=== PATIENT | female | born 1950 | race Caucasian/White ===

== ENCOUNTER → 2023-04-24 13:22 | Outpatient (REF) | payer MEDICARE, OTHER, SELFPAY | LOC: RAD 13:22 | PROVIDERS: ATTENDING PHYSICIAN Internal Medicine Rheumatology; FAMILY PHYSICIAN Internal Medicine Geriatric Medicine | DX: M81.0 Age-related osteoporosis without current pathological fracture (principal) | CPT/HCPCS: 77080 ==

== ENCOUNTER → 2023-07-22 06:44 | Outpatient (REF) | payer MEDICARE, OTHER, SELFPAY ==
[2023-07-22 08:48] LABS: ALT (SGPT) 29 U/L (0-35); AST (SGOT) 37 U/L (14-36); Albumin 3.9 g/dl (3.5-5.0); Alkaline Phosphatase 43 U/L (38-126); Blood Urea Nitrogen 22 mg/dl (7-17); Calcium 9.2 mg/dl (8.4-10.2); Carbon Dioxide 29 mmol/L (22-30); Chloride 104 mmol/L (98-107); Glucose 102 mg/dl (70-99); HDL Cholesterol 83 mg/dl; LDL Cholesterol, Calculated 42 mg/dl; Potassium 4.4 mmol/L (3.5-5.1); Sodium 137 mmol/L (135-145); Total Bilirubin 0.7 mg/dl (0.2-1.3); Total Cholesterol 133 mg/dl (50-199); Triglyceride 42 mg/dl (10-149); Very Low Density Lipoprotein 8 mg/dl (0-30); eGFR > 60.00
== END ==
LOC: RAD 06:44
PROVIDERS: ATTENDING PHYSICIAN Internal Medicine Geriatric Medicine
DX: I77.810 Thoracic aortic ectasia (principal); I65.23 Occlusion and stenosis of bilateral carotid arteries; Z00.00 Encounter for general adult medical examination without abnormal findings; E78.2 Mixed hyperlipidemia; I10 Essential (primary) hypertension; E74.39 Other disorders of intestinal carbohydrate absorption; K21.9 Gastro-esophageal reflux disease without esophagitis; E66.9 Obesity, unspecified; E55.9 Vitamin D deficiency, unspecified; M81.0 Age-related osteoporosis without current pathological fracture; G47.33 Obstructive sleep apnea (adult) (pediatric); M21.41 Flat foot [pes planus] (acquired), right foot; M79.671 Pain in right foot; M21.42 Flat foot [pes planus] (acquired), left foot; Z13.31 Encounter for screening for depression
CPT/HCPCS: 36415; 76770; 80053; 80061; 93880

== ENCOUNTER → 2023-08-20 07:43 | Outpatient (REF) | payer MEDICARE, OTHER, SELFPAY ==
[2023-08-20 10:14] LABS: ALT (SGPT) 20 U/L (0-35); AST (SGOT) 31 U/L (14-36); Albumin 4.1 g/dl (3.5-5.0); Alkaline Phosphatase 48 U/L (38-126); Direct Bilirubin 0.1 mg/dl (0.0-0.4); Total Bilirubin 0.8 mg/dl (0.2-1.3); Total Protein 6.2 g/dl (6.3-8.2)
== END ==
LOC: REG 07:43
PROVIDERS: ATTENDING PHYSICIAN Internal Medicine Geriatric Medicine
DX: R74.01 Elevation of levels of liver transaminase levels (principal)
CPT/HCPCS: 36415; 80076

== ENCOUNTER → 2023-09-27 12:01 | Outpatient (REF) | payer MEDICARE, OTHER, SELFPAY ==
[2023-09-27 14:14] LABS: Blood Urea Nitrogen 23 mg/dl (7-17); Calcium 9.6 mg/dl (8.4-10.2); Carbon Dioxide 30 mmol/L (22-30); Chloride 99 mmol/L (98-107); Glucose 87 mg/dl (70-99); Potassium 4.3 mmol/L (3.5-5.1); Sodium 134 mmol/L (135-145); eGFR > 60.00
[2023-09-27 14:32] LABS: Vitamin D, 25-OH*** 56.3 ng/mL (30-80)
== END ==
LOC: REG 12:01
PROVIDERS: ATTENDING PHYSICIAN Internal Medicine; FAMILY PHYSICIAN Internal Medicine
DX: M81.0 Age-related osteoporosis without current pathological fracture (principal)
CPT/HCPCS: 36415; 80048; 82306

== ENCOUNTER → 2023-12-16 07:56 | Outpatient (REF) | payer MEDICARE, OTHER, SELFPAY ==
[2023-12-16 10:18] LABS: ALT (SGPT) 23 U/L (0-35); AST (SGOT) 31 U/L (14-36); Albumin 4.2 g/dl (3.5-5.0); Alkaline Phosphatase 36 U/L (38-126); Direct Bilirubin 0.1 mg/dl (0.0-0.4); HDL Cholesterol 94 mg/dl; LDL Cholesterol, Calculated 52 mg/dl; Total Bilirubin 0.9 mg/dl (0.2-1.3); Total Cholesterol 153 mg/dl (50-199); Total Protein 6.2 g/dl (6.3-8.2); Triglyceride 39 mg/dl (10-149); Very Low Density Lipoprotein 7 mg/dl (0-30)
== END ==
LOC: REG 07:56
PROVIDERS: ATTENDING PHYSICIAN Internal Medicine
DX: E78.5 Hyperlipidemia, unspecified (principal)
CPT/HCPCS: 36415; 80061; 80076

== ENCOUNTER → 2024-03-10 12:52 | Outpatient (REF) | payer MEDICARE, OTHER, SELFPAY | LOC: WDC 12:52 | PROVIDERS: ATTENDING PHYSICIAN Obstetrics & Gynecology Gynecology; FAMILY PHYSICIAN Internal Medicine | DX: Z12.31 Encounter for screening mammogram for malignant neoplasm of breast (principal) | CPT/HCPCS: 77063; 77067 ==

== ENCOUNTER → 2024-03-18 07:39 | Outpatient (REF) | payer MEDICARE, OTHER, SELFPAY ==
[2024-03-18 10:16] LABS: Blood Urea Nitrogen 16 mg/dl (7-17); Calcium 9.4 mg/dl (8.4-10.2); Carbon Dioxide 28 mmol/L (22-30); Chloride 101 mmol/L (98-107); Glucose 92 mg/dl (70-99); HDL Cholesterol 82 mg/dl; LDL Cholesterol, Calculated 66 mg/dl; Potassium 4.2 mmol/L (3.5-5.1); Sodium 138 mmol/L (135-145); Total Cholesterol 157 mg/dl (50-199); Triglyceride 45 mg/dl (10-149); Very Low Density Lipoprotein 9 mg/dl (0-30); eGFR > 60.00
[2024-03-18 10:18] LABS: Vitamin D, 25-OH*** 52.8 ng/mL (30-80)
== END ==
LOC: REG 07:39
PROVIDERS: ATTENDING PHYSICIAN Internal Medicine
DX: E78.5 Hyperlipidemia, unspecified (principal); M81.0 Age-related osteoporosis without current pathological fracture
CPT/HCPCS: 36415; 80048; 80061; 82306

== ENCOUNTER → 2024-03-20 08:21 | Outpatient (REF) | payer MEDICARE, OTHER, SELFPAY | LOC: REG 08:21 | PROVIDERS: ATTENDING PHYSICIAN Nurse Practitioner Adult Health; FAMILY PHYSICIAN Internal Medicine | DX: R19.5 Other fecal abnormalities (principal) | CPT/HCPCS: 82705 ==

== ENCOUNTER → 2024-06-19 08:25 | Outpatient (REF) | payer MEDICARE, OTHER, SELFPAY ==
[2024-06-19 13:40] LABS: HDL Cholesterol 94 mg/dl; LDL Cholesterol, Calculated 122 mg/dl; Total Cholesterol 226 mg/dl (50-199); Triglyceride 51 mg/dl (10-149); Very Low Density Lipoprotein 10 mg/dl (0-30)
[2024-06-19 15:39] LABS: Hepatitis C Antibody Negative (Negative)
== END ==
LOC: REG 08:25
PROVIDERS: ATTENDING PHYSICIAN Internal Medicine
DX: E78.5 Hyperlipidemia, unspecified (principal); Z00.00 Encounter for general adult medical examination without abnormal findings; Z11.59 Encounter for screening for other viral diseases
CPT/HCPCS: 36415; 80061; 86803

== ENCOUNTER → 2024-09-03 08:29 | Outpatient (REF) | payer MEDICARE, OTHER, SELFPAY ==
[2024-09-03 10:33] LABS: ALT (SGPT) 16 U/L (0-35); AST (SGOT) 23 U/L (14-36); Albumin 4.4 g/dl (3.5-5.0); Alkaline Phosphatase 52 U/L (38-126); HDL Cholesterol 96 mg/dl; LDL Cholesterol, Calculated 90 mg/dl; Total Protein 6.7 g/dl (6.3-8.2); Very Low Density Lipoprotein 9 mg/dl (0-30)
== END ==
LOC: RCS 08:29
PROVIDERS: ATTENDING PHYSICIAN Internal Medicine; FAMILY PHYSICIAN Internal Medicine
DX: R07.9 Chest pain, unspecified (principal); E78.5 Hyperlipidemia, unspecified
CPT/HCPCS: 36415; 80061; 80076; 93017; 93350

== ENCOUNTER → 2024-12-30 13:42 | Outpatient (REF) | payer MEDICARE, OTHER, SELFPAY ==
[2024-12-30 15:08] LABS: Blood Urea Nitrogen 13 mg/dl (7-17); Calcium 10.0 mg/dl (8.4-10.2); Chloride 100 mmol/L (98-107); Glucose 130 mg/dl (70-99); Potassium 4.5 mmol/L (3.5-5.1); Sodium 136 mmol/L (135-145); eGFR > 60.00
[2024-12-30 15:17] LABS: Carbon Dioxide 31 mmol/L (22-30)
== END ==
LOC: REG 13:42
PROVIDERS: ATTENDING PHYSICIAN Internal Medicine
DX: Z01.818 Encounter for other preprocedural examination (principal)
CPT/HCPCS: 36415; 80048

== ENCOUNTER → 2025-01-25 09:48 | Outpatient (REF) | payer MEDICARE, OTHER, SELFPAY | LOC: RAD 09:48 | PROVIDERS: ATTENDING PHYSICIAN Internal Medicine | DX: R94.39 Abnormal result of other cardiovascular function study (principal) | CPT/HCPCS: 75574; Q9967 ==

== ENCOUNTER → 2025-02-02 07:57 | Outpatient (REF) | payer MEDICARE, OTHER, SELFPAY ==
[2025-02-02 09:33] LABS: HDL Cholesterol 84 mg/dl; LDL Cholesterol, Calculated 51 mg/dl; Very Low Density Lipoprotein 9 mg/dl (0-30)
== END ==
LOC: REG 07:57
PROVIDERS: ATTENDING PHYSICIAN Internal Medicine
DX: E78.5 Hyperlipidemia, unspecified (principal)
CPT/HCPCS: 36415; 80061

== ENCOUNTER → 2025-02-05 10:23 | Outpatient (REF) | payer MEDICARE, OTHER, SELFPAY | LOC: REG 10:23 | PROVIDERS: ATTENDING PHYSICIAN Internal Medicine | DX: J43.9 Emphysema, unspecified (principal) | CPT/HCPCS: 36415; 82103 ==

== ENCOUNTER → 2025-02-16 08:43 | Outpatient (REF) | payer MEDICARE, OTHER, SELFPAY | LOC: RSP 08:43 | PROVIDERS: ATTENDING PHYSICIAN Internal Medicine | DX: J43.9 Emphysema, unspecified (principal) | CPT/HCPCS: 88738; 94010; 94727; 94729 ==